=== PATIENT | female | born 2000 | race Asian ===

== ENCOUNTER 2021-07-30 03:53 | Emergency (ER) | payer OTHER ==
[~2021-07-30] VITALS: Ht 149.9 cm; Wt 49.9 kg
[2021-07-30 05:15] VITALS: BP 110/74; TEMP 98.3
== END 2021-07-30 05:15 | disposition home or self-care (01) ==
LOC: ED 03:53
DX: N39.0 Urinary tract infection, site not specified (principal); N83.299 Other ovarian cyst, unspecified side
CPT/HCPCS: 81000; 81025; 87077; 87086; 87088; 87186; 96372; 99283; J0696; J1885